=== PATIENT | male | born 1965 | race Caucasian/White ===

== ENCOUNTER 2016-06-08 11:45 | Day surgery (SDC) | payer OTHER ==
[~2016-06-08] VITALS: Ht 172.7 cm; Wt 59.0 kg
[2016-06-08] VITALS (7 sets, daily range): BP systolic 89–141; BP diastolic 61–94; PULSE 60–65; RESP 14–17; O2SAT 94–99
[~2016-06-08 11:45] MED LIST: 0.9% Sodium Chloride 1,000 ML IV SCH; Sodium Chloride LOK Flush 10 mL Syringe IV PRN; fentaNYL-PF 50 mCg/mL 2 mL Inj IVPUSH PRN
--- NOTE | 2016-06-08 13:46 | ENDO ---
[address] [address] ENDOSCOPY PROCEDURE PATIENT: MAGDALENE SO : 1965 MR#: [id number] ADMIT: 06/08/2016 JOB ID: [id number] DATE OF SERVICE: 06/08/2016 PROCEDURE PERFORMED: Colonoscopy. INDICATIONS: Screening. ASA CLASSIFICATION: The patient's ASA classification is I. MALLAMPATI SCORE: Mallampati score was 1. MEDICATIONS: 1. Versed 6 mg. 2. Fentanyl 125 mcg. INSTRUMENT USED: PCF-H180AL. PREPARATION QUALITY: Good. PROCEDURE DETAILS: After informed consent was obtained, the patient was brought into the GI suite, where he was placed on oxygen via nasal cannula and monitored with continuous pulse oximeter, telemetry, and blood pressure monitoring. A time-out was performed. Then, he was placed in the left lateral decubitus position and medications were administered for sedation. Digital rectal exam with palpation of the prostate was performed which was unremarkable. The colonoscope was then inserted into the rectum and advanced under direct visualization to the cecum, which was identified by the presence of the rios-appendiceal orifice. Once the cecum was reached, the colonoscope was withdrawn back into the rectum, as the mucosa and lumen were examined. In the rectum, retroflexion was performed. Following retroflexion, remaining air in the rectum was suctioned, and procedure was completed. FINDINGS: 1. There were two polyps in the cecum measuring approximately 3 mm each. Both polyps were removed with a cold snare. 2. Diverticula were seen scattered throughout the entire colon. 3. Retroflexed views in the rectum were unremarkable. IMPRESSION: 1. Two cecal polyps. 2. Scattered diverticula throughout the colon. RECOMMENDATIONS: 1. Fiber-rich diet. 2. Repeat colonoscopy pending polyp pathology results. COMPLICATIONS: None. ESTIMATED BLOOD LOSS: Less than 5 mL.
--- NOTE | 2016-06-09 14:06 | PATH ---
SURGICAL PATHOLOGY Attending Physician:Leonard Beal CASE STATUS: Signed Out PATIENT NAME: MAGDALENE SO PID: [id number] : 1965 DATE COLLECTED:06/08/2016 20:20 SPECIMEN: Colon, Biopsy CLINICAL HISTORY: 1). CECAL POLYP FINAL DIAGNOSIS: 1.CECAL POLYP: TUBULAR ADENOMA INVOLVING SINGLE BIOPSY FRAGMENT. ICD10 CODE D12.0 GROSS DESCRIPTION: The specimen is received in one formalin filled container labeled with the patient's name, sublabeled "cecal polyp" and consists of 2 portions of tissue which aggregate to 0.4 x 0.4 x 0.2 CM. The specimen is entirely submitted in one cassette. 06/08/2016 [facility] MICRO DESCRIPTION: See diagnosis. ICD-9 CODES: CPT CODES: 1: 05492 Electronically Signed Out Sherif Hidalgo MD [facility] Pathology [facility] [address], [place] [address] Technical component performed at [facility], [facility] [address], [address]
== END 2016-06-08 23:59 | disposition home or self-care (01) ==
LOC: END 11:45
PROVIDERS: ATTEND Internal Medicine Gastroenterology
DX: Z12.11 Encounter for screening for malignant neoplasm of colon (principal); D12.0 Benign neoplasm of cecum; K57.32 Diverticulitis of large intestine without perforation or abscess without bleeding
CPT/HCPCS: 45385; 88305; G0500; J2250; J7030